=== PATIENT | female | born 2000 ===

== ENCOUNTER 2024-11-09 17:22 | Inpatient (IN) | payer OTHER ==
[2024-11-09] MEDS: OXYTOCIN 20 UNITS in 0.9% NS 20 UNIT/1,000 ML INFUS.BAG IV SCH (17:45)
[2024-11-09] MEDS: morphine SULFATE 4 MG/ML VIAL IVPB ONE (17:50)
[2024-11-09 18:41] LABS: URINE BARBITURATES NEGATIVE (NEGATIVE); URINE BENZODIAZEPINES NEGATIVE (NEGATIVE)
[2024-11-09 18:42] LABS: METHADONE, UR NEGATIVE (NEGATIVE); PHENCYCLIDINE,URINE NEGATIVE (NEGATIVE)
[2024-11-09 18:46] LABS: COCAINE, UR NEGATIVE (NEGATIVE); OPIATES, URI NEGATIVE (NEGATIVE); URINE AMPHETAMINES NEGATIVE (NEGATIVE)
[2024-11-09 18:48] LABS: BASO % 0.2 % (0-2.0); EOS % 0.1 % (0-4.5); HEMATOCRIT 20.8 % (32.4-45.2); LYMPH % 8.7 % (8-40); MCH 20.8 pg (25.7-33.7); MCHC 30.3 g/dl (32.0-36.0); MEAN CELL VOLUME 68.5 fl (80-96); MEAN PLT VOLUME 7.8 fl (7.5-11.1); MONO % 5.6 % (3.8-10.2); NEUT % 85.4 % (42.8-82.8); PLATELET COUNT 261 10^3/uL (134-434); RBC 3.04 M/mm3 (3.60-5.2); RDW 16.6 % (11.6-15.6); WHITE BLOOD COUNT 13.6 K/mm3 (4.0-10.0)
[2024-11-09] MEDS ORDERED: BENZOCAINE 28 GM HEMORRHOIDAL OINTMENT TP PRN (18:59)
[2024-11-09] MEDS ORDERED: BISACODYL 10 MG SUPP.RECT RC PRN (18:59)
[2024-11-09] MEDS ORDERED: METHYLERGONOVINE MALEATE 0.2 MG/1 ML AMP IM PRN (18:59)
[2024-11-09] MEDS ORDERED: WITCH HAZEL 50% (TUCKS) 40 PAD/JAR PAD TP PRN (18:59)
[2024-11-09 19:00] LABS: HEMOGLOBIN 6.3 GM/dL (10.7-15.3)
[2024-11-09 19:01] VITALS: BMI 28.9
[2024-11-09 19:03] LABS: EPI CELLS 13 /uL (0-25.1); HYALINE CASTS 1 /uL (0-3.1); URINE APPEARANCE CLEAR; URINE BACTERIA 98 /uL (0-1359); URINE BILIRUBIN NEGATIVE (NEGATIVE); URINE COLOR YELLOW; URINE GLUCOSE (UA) NEGATIVE (NEGATIVE); URINE KETONE 2+ (NEGATIVE); URINE LEUK ESTERASE NEGATIVE (NEGATIVE); URINE NITRITE NEGATIVE (NEGATIVE); URINE PROTEIN 2+ (NEGATIVE); URINE RBC 4 /uL (0-23.9); URINE WBC 2 /uL (0-25.8)
[2024-11-09 19:05] LABS: CHLORIDE 118 mmol/L (98-107); SODIUM 144 mmol/L (136-145)
[2024-11-09] MEDS: IBUPROFEN 600 MG TABLET (FP) PO PRN (19:05)
[2024-11-09 19:07] LABS: ALBUMIN 1.8 g/dl (3.4-5.0); BLOOD UREA NITROGEN 7.9 mg/dL (7-18); CO2 17 mmol/L (21-32)
[2024-11-09 19:08] LABS: GLUCOSE,RANDOM 56 mg/dL (74-106)
[2024-11-09 19:10] LABS: SGOT/AST 13 U/L (15-37); SGPT/ALT 9 U/L (13-61)
[2024-11-09 19:11] LABS: CREATININE 0.2 mg/dL (0.55-1.3)
[2024-11-09 19:12] LABS: BILIRUBIN,TOTAL 0.2 mg/dL (0.2-1); INR 1.09 (0.83-1.09); PROTHROMBIN TIME (PATIENT) 11.9 SEC (9.7-13.0)
[2024-11-09 19:13] LABS: ALK PHOS 98 U/L (45-117); TOT PROT 4.4 g/dl (6.4-8.2)
[2024-11-09 19:15] LABS: ACTIVATED PTT 23.8 SECONDS (25.2-36.5)
[2024-11-09 19:45] LABS: ANION GAP 9 mmol/L (4-13); CALCIUM 5.8 mg/dL (8.5-10.1); POTASSIUM 2.8 mmol/L (3.5-5.1)
[2024-11-09 20:24] LABS: ANISOCYTOSIS 3+; MACROCYTOSIS 0
[2024-11-09 20:46] LABS: HEPATITIS B SURFACE AG MATERN NON-REACTIVE (NONREACTIVE)
[2024-11-09 21:10] LABS: BASO % 0.2 % (0-2.0); HEMATOCRIT 27.3 % (32.4-45.2); HEMOGLOBIN 8.3 GM/dL (10.7-15.3); LYMPH % 7.3 % (8-40); MCH 20.9 pg (25.7-33.7); MCHC 30.4 g/dl (32.0-36.0); MEAN CELL VOLUME 68.6 fl (80-96); MEAN PLT VOLUME 7.7 fl (7.5-11.1); MONO % 4.8 % (3.8-10.2); NEUT % 87.7 % (42.8-82.8); PLATELET COUNT 341 10^3/uL (134-434); RBC 3.98 M/mm3 (3.60-5.2); RDW 16.7 % (11.6-15.6); WHITE BLOOD COUNT 19.3 K/mm3 (4.0-10.0)
[2024-11-09 21:14] LABS: ADD RBC MORPHOLOGY YES
[2024-11-09 21:27] LABS: SYPHILIS W/ RPR CONF NON-REACTIVE (NONREACTIVE)
[2024-11-09 21:50] LABS: BLOOD UREA NITROGEN 9.8 mg/dL (7-18)
[2024-11-09 21:53] LABS: CREATININE 0.6 mg/dL (0.55-1.3)
[2024-11-09 21:54] LABS: TOT PROT 6.2 g/dl (6.4-8.2)
[2024-11-09 21:55] LABS: ALBUMIN 2.5 g/dl (3.4-5.0); BILIRUBIN,TOTAL 0.2 mg/dL (0.2-1); CALCIUM 8.1 mg/dL (8.5-10.1)
[2024-11-09 21:55] LABS: HIV INTERPRETATION NEGATIVE (NEGATIVE)
[2024-11-09] MEDS ORDERED: ACETAMINOPHEN 325 MG TABLET (FP) ONE (21:55)
[2024-11-09] MEDS: ACETAMINOPHEN 325 MG TABLET (FP) PO PRN (22:20)
[2024-11-10] MEDS: BENZOCAINE 20% 57 GM BOTTLE TP PRN (00:51)
[2024-11-10 07:14] LABS: BASO % 0.2 % (0-2.0); EOS % 0.2 % (0-4.5); HEMATOCRIT 26.4 % (32.4-45.2); HEMOGLOBIN 8.3 GM/dL (10.7-15.3); LYMPH % 17.5 % (8-40); MCH 22.5 pg (25.7-33.7); MCHC 31.6 g/dl (32.0-36.0); MEAN CELL VOLUME 71.1 fl (80-96); MEAN PLT VOLUME 7.9 fl (7.5-11.1); MONO % 9.8 % (3.8-10.2); NEUT % 72.3 % (42.8-82.8); PLATELET COUNT 254 10^3/uL (134-434); RBC 3.71 M/mm3 (3.60-5.2); RDW 18.6 % (11.6-15.6); WHITE BLOOD COUNT 11.7 K/mm3 (4.0-10.0)
[2024-11-10] MEDS: PRENATAL VITAMINS W/ FOLIC ACID TABLET (FP) PO SCH (09:42)
[2024-11-10] MEDS ORDERED: SENNOSIDES/DOCUSATE COMBO (SENNA PLUS) TABLET (UD) PO PRN (22:00)
[2024-11-10 22:57] VITALS: TEMP 98.2
[2024-11-10] MEDS: oxyCODONE HCL 5 MG TABLET PO PRN (22:59)
[2024-11-11 09:23] VITALS: BP 120/92; PULSE 76; RESP 18
== END 2024-11-11 15:46 | disposition home or self-care (01) | DRG 560 ==
LOC: JLDR 17:22 → J3W 22:28
PROVIDERS: ADMIT Obstetrics & Gynecology; ATTEND Obstetrics & Gynecology
PROC: 10E0XZZ Delivery of Products of Conception, External Approach (ICD-10-PCS; principal; 2024-11-09)
PROC: 0KQM0ZZ Repair Perineum Muscle, Open Approach (ICD-10-PCS; 2024-11-09)
PROC: 30233N1 Transfusion of Nonautologous Red Blood Cells into Peripheral Vein, Percutaneous Approach (ICD-10-PCS; 2024-11-09)
DX: O70.1 Second degree perineal laceration during delivery (principal); Z3A.38 38 weeks gestation of pregnancy; Z37.0 Single live birth; O99.02 Anemia complicating childbirth
CPT/HCPCS: 36415; 36430; 59409; 80053; 80307; 81003; 85025; 85461; 85610; 85730; 86780; 86803; 86900; 86922; 87340; 87389; 96372; J2790; P9058